=== PATIENT | female | born 1990 | race Hispanic/Latino ===

== ENCOUNTER 2018-07-11 09:43 | Inpatient (IN) | payer OTHER, MEDICAID ==
[2018-07-11] MEDS ORDERED: LACTATED RINGERS 2,000 ML ONE (12:07)
[2018-07-11] MEDS ORDERED: REGLAN IV SCH (12:34)
[2018-07-11] MEDS ORDERED: BICITRA PO SCH (12:34)
[2018-07-11] MEDS ORDERED: PEPCID IV SCH (12:34)
--- NOTE | 2018-07-11 12:36 | History and Physical Report ---
History of Present Illness Date of admission: 07/11/18 09:43 Chief complaint: schedule section History of present illness: 27yo at 39 weeks presents for scheduled repeat section. She reports good movement, no loss of fluid and no vaginal bleeding. 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 Past History Past Surgical History: section - Obstetrical History : 2 Number of Living Children: 1 Medications and Allergies Allergies Allergy/AdvReac Type Severity Reaction Status Date / Time No Known Allergies Allergy Verified 07/11/18 11:30 Home Medications Medication Instructions Recorded Confirmed Last Taken Type Ibuprofen [Motrin 800 MG tab] 800 mg PO Q8HR PRN #30 tablet 07/11/18 Unknown Rx oxyCODONE /ACETAMINOPHEN [Percocet 1 tab PO Q4HR PRN 14 Days #30 tab 07/11/18 Unknown Rx 5/325] - Vital Signs Vital signs: Vital Signs Temp Resp 97.9 F 12 07/11/18 11:29 07/11/18 11:29 Temp Pulse Resp BP Pulse Ox 97.9 F 12 07/11/18 11:29 07/11/18 11:29 - Obstetrical FHR: auscultation normal Results Result Diagrams: 07/11/18 12:17 07/11/18 12:15 All other labs normal. Assessment and Plan - Patient Problems (1) Previous section Current Visit: Yes Status: Acute (2) 39 weeks gestation of Current Visit: Yes Status: Acute Plan to address problem: IVF Routine labs Ancef 2g IV SCDs Draper Catheter Informed consent obtained and signed in chart. Proceed to repeat section.
[2018-07-11] MEDS ORDERED: PEPCID IV ONE (12:43)
[2018-07-11] MEDS ORDERED: PITOCin/NS 20 UNIT/1000ML DRIP 20,000 MILLIUNITS/1,000 ML BAG IV ONE (12:44)
[2018-07-11 12:45] LABS: Hemoglobin 11.2 gm/dl (10.1-14.3); Mean Corpuscular HGB Conc 34 % (30-34); Mean Corpuscular Volume 89 fl (79-97); Platelet Count 262 K/mm3 (140-440); Red Blood Count 3.73 M/mm3 (3.65-5.03); Red Cell Distribution Width 14.4 % (13.2-15.2)
[2018-07-11] MEDS ORDERED: LACTATED RINGERS 1,000 ML IV SCH (13:00)
[2018-07-11] MEDS ORDERED: ANCEF/STERILE WATER 2 GM/20 ML 2 GM/20 ML SYRINGE IV NR (13:00)
[2018-07-11] MEDS ORDERED: PITOCin/NS 20 UNIT/1000ML DRIP 20 UNITS/1,000 ML BAG IV SCH ×2 (13:00→16:00)
[2018-07-11] MEDS ORDERED: SUBLIMAZE ONE (13:04)
[2018-07-11 13:11] LABS: Alanine Aminotransferase 16 units/L (7-56); BUN/Creatinine Ratio 13; Blood Urea Nitrogen 8 mg/dL (7-17); Calcium 8.6 mg/dL (8.4-10.2); Hemolysis Index 38
[2018-07-11] MEDS ORDERED: CEFAZOLIN IV ONE (13:12)
[2018-07-11] MEDS ORDERED: ANCEF/STERILE WATER 2 GM/20 ML IV ONE (13:12)
[2018-07-11] MEDS ORDERED: TORADOL ONE (14:24)
[2018-07-11] MEDS ORDERED: VERSED ONE ×2 (14:26)
[2018-07-11] MEDS ORDERED: TYLENOL PO PRN (15:53)
[2018-07-11] MEDS ORDERED: ZOFRAN IV PRN (15:53)
[2018-07-11] MEDS ORDERED: NARCAN 0.4 MG/1 ML IV PRN (15:53)
[2018-07-11] MEDS ORDERED: LANSINOH TP PRN (15:53)
[2018-07-11] MEDS ORDERED: MILK OF MAGNESIA PO PRN (15:53)
[2018-07-11] MEDS ORDERED: MYLICON PO PRN (15:53)
[2018-07-11] MEDS ORDERED: TUCKS PAD TP PRN (15:53)
--- NOTE | 2018-07-11 15:57 | Operative Report ---
Operative Report Operative Report: DATE OF SURGERY 07/11/18 PREOP Diagnosis 1. 39 0/7 weeks gestation 2. Previous section Postop Diagnosis 1. 39 3/7 weeks gestation 2. Previous section 3. Leiomyoma Procedure: Repeat low-transverse section Findings 1. Viable male in the vertex position, weighing 6lb 15 oz, 3146g APGARS 8 at 1 min, 8 at 5 min 2. Normal bilateral ovaries and tubes 3. Small anterior leiomyoma Surgeon 1. Alexandra Leon MD Anesthesia: 1. Epidural I/O: EBL: 700ml UOP: 150ml IVF 1000ml LR Specimens removed: 1. Placenta Complications: none Disposition: Patient taken to recovery room in stable condition INDICATIONS: The patient is a 27yo at 39 0/7weeks that presented for scheduled repeat section. The patient was consented and the risks including but not limited to bleeding, infections, injury to surrounding organs, potential injury to mother/ were discussed. All questions were answered and informed consent signed. She was offered and declined a tubal sterilization. PROCEDURE: The patient was taken to the OR in stable condition. Adequate anesthesia was achieved with epidural anesthesia. A estrella catheter was placed. She wore SCDs for DVT prophylaxis. And received Ancef for infection prophylaxis. The patient was prepped and draped in the usual fashion and an additional time out was done. A Pfannestiel incision was made in the skin. The fascia was incised and the incision extended laterally. The superior and inferior aspect of the rectus muscle was dissected off of the fascia. Entry into the peritoneum was achieved. The incision was extended caudally. An Gurvinder retractor was placed. A low- transverse incision made made in the uterus and extended laterally. membranes were ruptured and noted to be clear. The head was brought to the hysterotomy and mouth bulb suctioned. The body was delivered. The cord was clamped x 2, cut and handed off to awaiting tool repairer staff. The placenta was delivered intact and 20 units of IV Pitocin were added to LR fluids. The uterus was cleaned of all clots. The uterus was repaired with 0- Vicryl in a running, locked stitch and an imbricating layer of the same suture was used. Hemoblast thrombin was applied to the hemostasis to aid in hemostasis. The rectus and peritoneum was reapproximated with 2-0 Vicryl. The fascia was closed with 0 Vicryl. Subcutaneous layer reapproximated with 2-0 Vicryl. The left aspect of the incision was noted to bleed and surgicel was placed in the subcuteaneous tissue. The skin was closed with 4-0 Vicryl. The patient tolerated the procedure well. All counts were correct x 3. Urine was noted to be clear at close of case. I was present and scrubbed for the entire procedure. The patient was taken to the recovery room in stable condition.
[2018-07-11] MEDS ORDERED: SODIUM CHLORIDE FLUSH SYRINGE 10 ML IV NR (16:00)
--- NOTE | 2018-07-11 17:27 | Anesthesia Consultation ---
Anesthesia Consult and Med Hx Date of service: 07/11/18 - Airway Anesthetic Teeth Evaluation: Poor, Chipped ROM Head & Neck: Adequate Mental/Hyoid Distance: Adequate Mallampati Class: Class II Intubation Access Assessment: Probably Good - Pulmonary Exam CTA: Yes - Cardiac Exam Cardiac Exam: RRR - Pre-Operative Health Status ASA Pre-Surgery Classification: ASA2 Proposed Anesthetic Plan: Epidural, Spinal - Pulmonary Hx Smoking: No (stop with ) Hx Asthma: Yes (as a child not treated since 5th grade) Hx Respiratory Symptoms: No SOB: No COPD: No Home Oxygen Therapy: No Hx Pneumonia: No Hx Sleep Apnea: No - Cardiovascular System Hx Hypertension: No Hx Coronary Artery Disease: No Hx Heart Attack/AMI: No Hx Angina: No Hx Percutaneous Transluminal Coronary Angioplasty (PTCA): No Hx Cardia Arrhythmia: No Hx Pacemaker: No Hx Internal Defibrillator: No Hx Valvular Heart Disease: No Hx Heart Murmur: No Hx Peripheral Vascular Disease: No - Central Nervous System Hx Neuromuscular Disorder: No Hx Seizures: No CVA: No Hx Back Pain: Yes Hx Psychiatric Problems: No - Gastrointestinal Hx Ulcer: No Hx Gastroesophageal Reflux Disease: Yes - Endocrine Hx Renal Disease: No Hx End Stage Renal Disease: No Hx Cirrhosis: No Hx Liver Disease: No Hx Insulin Dependent Diabetes: No Hx Non-Insulin Dependent Diabetes: No Hx Thyroid Disease: No Hx Hypothyroidism: No Hx Hyperthyroidism: No - Hematic Hx Anemia: No Hx Sickle Cell Disease: No - Other Systems Hx Alcohol Use: No Hx Substance Use: No Hx Cancer: No Hx Obesity: No
--- NOTE | 2018-07-11 17:28 | Anesthesia Day of Surgery ---
Anesthesia Day of Surgery - Day of Surgery Patient Examined: Yes Patient H&P Reviewed: Yes Patient is NPO: Yes Beta Blockers: No Cardiac Clearance: No Pulmonary Clearance: No Kevin's Test: N/A
--- NOTE | 2018-07-11 17:29 | Post Anesthesia Evaluation ---
- Post Anesthesia Evaluation Patient Participated: Yes Airway Patent: Yes Stable Respiratory Function: Yes Nausea/Vomiting: No Temp > 96.8F: Yes Pain Manageable: Yes Adequeate Hydration: Yes Anesthesia Complications: No Block Receding Appropriately: Yes Patient on Ventilator: No
[2018-07-11] MEDS: MORPHINE IV PRN (20:00)
[2018-07-11] MEDS: TORADOL IV PRN (20:36)
[2018-07-12] MEDS: MORPHINE IV PRN ×2 (00:09→04:01)
[2018-07-12] MEDS: TORADOL IV PRN (05:26)
[2018-07-12 06:26] LABS: Hematocrit 28.9 % (30.3-42.9); Hemoglobin 9.9 gm/dl (10.1-14.3)
[2018-07-12] MEDS: FEOSOL PO SCH (10:50)
[2018-07-12] MEDS: PERCOCET 5/325 PO PRN ×2 (10:59→20:32)
[2018-07-12] MEDS: IBUPROFEN PO PRN ×2 (11:00→20:33)
--- NOTE | 2018-07-12 12:17 | Progress Note ---
Assessment and Plan A: POD #1 Asymptomatic Anemia P: Follow Routine PostOp Orders Infed 100mg IM x 1 dose Subjective - Subjective Date of service: 07/12/18 Patient reports: appetite normal, voiding normally, pain well controlled, flatus, bowel movement, ambulating normally, other (States she is refusing her iron pills, because they cause nausea. States she never takes iron pills. Agrees to Infed Injection.) [place]: doing well, bottle feeding Objective - Vital Signs Latest vital signs: Vital Signs Temp Pulse Resp BP BP Pulse Ox 07/12/18 11:00 18 07/12/18 10:59 18 07/12/18 07:37 97.9 F 67 18 114/70 07/12/18 04:29 97.8 F 74 20 110/75 96 07/12/18 01:13 98.3 F 65 20 118/71 98 07/11/18 20:38 98.0 F 66 20 120/77 98 07/11/18 17:29 87 138/99 07/11/18 17:23 76 141/95 07/11/18 16:40 98.0 F 69 21 101/64 97 07/11/18 16:30 67 22 105/62 98 07/11/18 16:29 80 127/76 07/11/18 16:15 78 20 116/69 94 07/11/18 16:01 69 20 98/60 97 07/11/18 15:59 86 120/78 07/11/18 15:45 63 19 106/62 97 07/11/18 15:44 80 119/75 07/11/18 15:40 69 23 101/58 98 07/11/18 15:37 97.8 F 67 24 103/54 98 07/11/18 15:36 74 158/97 07/11/18 15:32 83 149/91 07/11/18 15:16 85 146/94 07/11/18 14:59 90 137/86 07/11/18 14:47 86 132/84 07/11/18 14:16 90 141/98 Intake and Output 07/11/18 07/12/18 07/12/18 22:59 06:59 14:59 Intake Total 1200 240 480 Output Total 350 500 Balance 850 -260 480 Intake: IV 1200 Oral 480 Intake, Free Water 240 Output: Urine 350 500 Indwelling Catheter 500 Uretheral (Draper) 100 Other: Total, Intake Amount 480 Total, Output Amount 500 Estimated Blood Loss 800 - Exam Breasts: Present: normal Cardiovascular: Present: Regular rate Lungs: Present: Clear to auscultation, Normal air movement Abdomen: Present: normal appearance, soft, normal bowel sounds Uterus: Present: normal, firm, fundal height below umbilicus Extremities: Present: normal Incision: Present: normal, dry, dressed - Labs Labs: Abnormal lab results 07/11/18 07/11/18 07/12/18 Range/Units 12:15 12:17 06:05 WBC 13.5 H (4.5-11.0) K/mm3 Hgb 9.9 L (10.1-14.3) gm/dl Hct 28.9 L (30.3-42.9) % Sodium 135 L (137-145) mmol/L Carbon Dioxide 20 L (22-30) mmol/L Creatinine 0.6 L (0.7-1.2) mg/dL Alkaline Phosphatase 162 H (35-129) units/L Albumin 3.0 L (3.9-5) g/dL
[2018-07-12] MEDS ORDERED: INFED IM ONE (13:00)
[2018-07-13] MEDS: IBUPROFEN PO PRN ×2 (04:04→09:40)
[2018-07-13] MEDS: PERCOCET 5/325 PO PRN ×2 (04:04→09:40)
[2018-07-13 09:00] VITALS: BP 122/77
[2018-07-13] MEDS: FEOSOL PO SCH (09:39)
--- NOTE | 2018-07-13 10:50 | Progress Note ---
Assessment and Plan A: POD #2 s/p Repeat c/s Asymptomatic Anemia s/p Infed injection Stable P: Follow Routine PostOp Orders Ferrous sulfate 325mg PO BID Pt desires discharge home this evening pending peds Subjective - Subjective Date of service: 07/13/18 Principal diagnosis: POD#2 s/p Repeat c/s 07/11 Patient reports: appetite normal, voiding normally, pain well controlled, flatus, ambulating normally, no bowel movement [place]: doing well, bottle feeding Objective - Vital Signs Latest vital signs: Vital Signs Temp Pulse Resp BP BP Pulse Ox 07/13/18 08:23 98.1 F 60 16 122/77 99 07/13/18 00:09 98.2 F 65 18 110/74 97 07/12/18 16:13 98.5 F 66 18 114/61 07/12/18 12:13 98.8 F 66 18 114/55 07/12/18 11:00 18 07/12/18 10:59 18 - Exam Breasts: Present: normal Cardiovascular: Present: Regular rate, Normal S1, Normal S2, No murmurs Lungs: Present: Clear to auscultation, Normal air movement Abdomen: Present: normal appearance, soft, tenderness (as expected post-op), normal bowel sounds. Absent: distention Vulva: both: normal Uterus: Present: firm, fundal height at umbilicus Extremities: Present: normal Deep Tendon Reflex Grade: Normal +2 Incision: Present: normal, dry, intact
--- NOTE | 2018-07-13 10:52 | Discharge Summary ---
Providers - Providers Date of Admission: 07/11/18 09:43 Date of discharge: 07/13/18 Attending physician: ARTEMIO POWER Primary care physician: ARTEMIO POWER Hospitalization Reason for admission: IUP at term Delivery: Procedure: repeat low transverse Procedure details: See H&P and delivery note Incision: normal, dry, intact Other procedures: none complications: none Discharge diagnosis: IUP at term delivered baby: male Condition at discharge: Good Disposition: DC-01 TO HOME OR SELFCARE Plan - Discharge Medications Prescriptions: Ibuprofen [Motrin 800 MG tab] 800 mg PO Q8HR PRN #30 tablet PRN Reason: Pain, Moderate (4-6) oxyCODONE /ACETAMINOPHEN [Percocet 5/325] 1 tab PO Q4HR PRN 14 Days #30 tab PRN Reason: Pain , Severe (7-10) - Provider Discharge Summary Activity: routine, no sex for 6 weeks, no heavy lifting 4 weeks, no strenuous exercise Diet: routine Instructions: routine Additional instructions: [] Smoking cessation referral if applicable(refer to patient education folder for contact #) [] Refer to [facility] Booklet Call your doctor immediately for: * Fever > 100.5 * Heavy vaginal bleeding ( >1 pad per hour) * Severe persistent headache * Shortness of breath * Reddened, hot, painful area to leg or breast * Drainage or odor from incision. * Keep incision clean and dry at all times and follow doctor's instructions regarding bathing/showering - Follow up plan Follow up: ARTEMIO POWER MD [Primary Care Provider] - 7 Days
== END 2018-07-13 13:30 | disposition home or self-care (01) | DRG 787 ==
LOC: APU 09:43 → OB 17:31
PROVIDERS: ADMIT Obstetrics & Gynecology; ATTEND Obstetrics & Gynecology
PROC: 10D00Z1 Extraction of Products of Conception, Low, Open Approach (ICD-10-PCS; principal; 2018-07-11)
DX: O34.211 Maternal care for low transverse scar from previous cesarean delivery (principal); D62 Acute posthemorrhagic anemia; O99.62 Diseases of the digestive system complicating childbirth; K21.9 Gastro-esophageal reflux disease without esophagitis; O99.02 Anemia complicating childbirth; D64.9 Anemia, unspecified; O99.824 Streptococcus B carrier state complicating childbirth; O34.13 Maternal care for benign tumor of corpus uteri, third trimester; Z3A.39 39 weeks gestation of pregnancy; Z37.0 Single live birth
CPT/HCPCS: 36415; 80053; 85014; 85018; 85027; 86592; 86850; 86900; 86901; G0378; C9250; J0690; J1750; J1885; J2250; J2270; J2590; J2765; J3010; J7120